=== PATIENT | male | born 2000 | race Two or more races ===

== ENCOUNTER 2023-05-12 18:56 | Emergency (ER) | payer MEDICAID, OTHER ==
[~2023-05-12] VITALS: Ht 188 cm; Wt 90.9 kg
[2023-05-12 19:23] VITALS: BP 109/51; PULSE 64; RESP 18; TEMP 97.6; O2SAT 98
[2023-05-12] MEDS ORDERED: HYDR-4902 PO (21:40)
[2023-05-12] MEDS ORDERED: HYDROcodone-ACET 5/325MG TAB PO ONE (21:45)
== END 2023-05-12 22:07 | disposition home or self-care (01) ==
LOC: ER 18:56
DX: S82.54XA Nondisplaced fracture of medial malleolus of right tibia, initial encounter for closed fracture (principal); S92.354A Nondisplaced fracture of fifth metatarsal bone, right foot, initial encounter for closed fracture; W22.8XXA Striking against or struck by other objects, initial encounter; Y93.89 Activity, other specified; Y92.89 Other specified places as the place of occurrence of the external cause; Y99.8 Other external cause status
CPT/HCPCS: 73610; 73630